=== PATIENT | female | born 1995 | race Caucasian/White ===

== ENCOUNTER 2016-09-09 13:18 | Emergency (ER) | payer OTHER ==
[~2016-09-09] VITALS: Ht 170.2 cm; Wt 79.5 kg
[2016-09-09 13:20] VITALS: BP 143/90; PULSE 91; RESP 18; O2SAT 96
[2016-09-09] MEDS ORDERED: PREN-12 PO (13:24)
--- NOTE | 2016-09-09 13:40 | ED.REPORT ---
HPI-Chest Pain Under 40 Date of Service Sep 09, 2016 ED Provider: Dr. Clark A 22 week 19 year old female presents to the ED complaining of an episode of baseline heart palpitations onset last night while patient was lying in bed. At onset, she felt elevated heart rate accompanied by pain throughout her chest and ribs that lasted 10 minutes. She has never felt pain like this in the past. Additionally, she reports having had an episode of palpitations accompanied by severe SOB earlier today while she was walking home from her neighbor's house, describing that it felt like there was a heavy pressure on her chest. Baseline palpitations originally onset approximately one month ago, and are normally accompanied by dizziness and syncope. Sometimes, the palpitations happen when she raises her arms up. Baseline palpitations have been relieved with sitting down and drinking a lot of water. She has never measured her heart rate to confirm elevated heart rate during baseline episodes of palpitations. She denies any cough, sputum, abdominal pain, or diarrhea. The patient reports having had either her tonsils or adenoids surgically removed and denies any history of anemia. She reports that her mom gets heart palpitations every once in a while but that they are not very strong. Her grandpa and uncle both had ingrid parkinson white syndrome but she has never been diagnosed with it. She reports having had a cold a couple of months ago but is otherwise healthy. She is currently taking pills, but has no other medications. She does not smoke or drink alcohol. The patient reports that they are not currently experiencing the heart palpitation symptoms at the moment. Nursing Notes Stated Complaint: HEART PALPITATIONS, DIZZY/FAINT, SOB, 21 WKS PREG Chief Complaint: Chest Pain Nursing Notes Reviewed: Yes Allergies: Coded Allergies: No Known Allergies (Unverified , 09/09/16) Miscellaneous Medications Vit W-Ca,Fe,FA(<1 mg) ( Formula) 1 Each Tablet 1 EACH PO General Time Seen by MD: 13:39 Chief Complaint Chest pain (Heart palpitations) Hx Obtained From: Patient Arrived By: Walk-in Onset Occurred: Yesterday (Last night) Symptom Duration: Intermittent Severity: Current: Mild Severity: Maximum: Mild Recent Healthcare: No recent doctor visit Similar Sx Previous: No Past Medical History Past Medical History Denies anemia. Past Surgical History reports having had either her tonsils or adenoids surgically removed Family History Patient's mom gets heart palpitations every once in a while but that they are not very strong. Patient's grandpa and uncle both had ingrid parkinson white syndrome but she has never been diagnosed with it. Ambulatory Status Independent Review of Systems Respiratory: Reports: Shortness of breath, Denies: Non-productive cough, Prod cough, clear Cardiovascular: Reports: Chest pain GI: Denies: Abdominal pain, Diarrhea Neurologic: Reports: Dizziness, Syncope Complete sys rev & neg: except as marked. Female: Reports: Physical Exam Initial Vital Signs Vital Signs (First) Date Time Temp Pulse Resp B/P Pulse Ox O2 Delivery O2 Flow Rate FiO2 09/09/16 13:20 36.6 91 18 143/90 96 Room Air Initial VS: Reviewed General/Constitutional: Awake, Alert Respiratory / Chest: Atraumatic, Breath sounds NL, Breath sounds = bilat, No respiratory distress, No rales, No rhonchi, No wheezing Cardiovascular: Heart rate NL, Regular rhythm, Heart sounds NL, No gallop, No murmurs, No rubs Right lower extremity edema, mild. Neck: Atraumatic, Full range of motion Abdomen: Atraumatic, No guarding, No rebound Back: Atraumatic, Full range of motion Skin: Atraumatic, Warm, Dry Neurologic: Oriented X3, Speech NL Head / Eyes: Atraumatic, Normocephalic, PERRL, EOMI ENT: Atraumatic, Mucous membranes moist Upper Extremity / MS: Atraumatic, Full range of motion Wrist / Hand: Atraumatic, Full range of motion Ankle / Foot: Atraumatic, Full range of motion Interpretation & Diagnostics Lab Results Interpretation Result Diagram: 09/09/16 1350 09/09/16 1350 Test 09/09/16 13:30 09/09/16 13:50 White Blood Count 11.9th/mm3 (3.8-10.1) Red Blood Count 4.24mil/mm3 (3.90-5.20) Hemoglobin 12.7g/dL (12.0-15.6) Hematocrit 36.4% (35.0-46.0) Mean Corpuscular Volume 85.8fL (81-100) Mean Corpuscular Hemoglobin 30.0pg (27.0-35.0) Mean Corpuscular Hemoglobin Concent 34.9% (32.0-37.0) Red Cell Distribution Width 13.9% (12.3-15.4) Platelet Count 305bil/L (150-400) Neutrophils (%) (Auto) 76.0% (40-74) Lymphocytes (%) (Auto) 17.9% (14-46) Monocytes (%) (Auto) 4.8% (4-12) Eosinophils (%) (Auto) 0.9% (0-5) Basophils (%) (Auto) 0.1% (0-3) D-Dimer 0.9mg/L (<0.50) Sodium Level 132mEq/L (134-144) Potassium Level 3.7mEq/L (3.5-5.2) Chloride Level 96mEq/L (97-108) Carbon Dioxide Level 20mmol/L (18-29) Blood Urea Nitrogen 8mg/dL (6-20) Creatinine 0.37mg/dL (0.57-1.00) Estimat Glomerular Filtration Rate 322mL/min (>59) Glucose Level 89mg/dL (60-99) Calcium Level 9.7mg/dL (8.5-10.1) Magnesium Level 1.9mg/dL (1.6-2.6) Total Bilirubin 0.2mg/dL (0.0-1.2) Aspartate Amino Transf (AST/SGOT) 16U/L (0-50) Alanine Aminotransferase (ALT/SGPT) 20U/L (0-32) Alkaline Phosphatase 129U/L (25-150) Troponin T < 0.010ug/L (0.0-0.011) Total Protein 7.6g/dL (6.4-8.4) Albumin 4.2g/dL (3.4-5.0) ECG Interpretation ECG Interpretation: Rate is 85. Sinus rhythm. Time: 13:51 Interpreted by: ED physician Re-Eval/Medical Decision Med Decision/Clinical Course Patient has a persistent tachycardia and an elevated d-dimer with exertional tachycardia and chest pain concerning for embolism. She does have a short AL interval on EKG without a delta wave, this could be a sign of occult [id number]-Kpbdhdhbf-Fjaxm or other preexcitation syndrome. Currently thyroid studies and CT angiogram of the chest are pending. A phone call to the patient's [employer] is also pending. Source of Hx: Old records Re-Evaluation/Progress #1: Time of Eval: 13:57 Re-Evaluation/Progress Note: Rechecked patient, explained risks invloved with radiation and development. Exaplained that her baby is beyond organogenesis stage of development. Re-Evaluation/Progress #2: Time of Eval: 15:01 Re-Evaluation/Progress Note: Rechecked patient. She reported that she got up and walked to the bathroom with no complaints. She reports feeling normal. Discharge & Departure Shift Change Sign-Out Patient Care Transferred: Yes Discussed Complaint(s): Yes Laboratory Evaluation: Back, reviewed by me Care Transferred to: Dr. Dial. Care Transferred at: 15:00 Scribe Attestation Portions of this note were transcribed by Duarte Azul. Dr. Angelica Chiu personally performed the history, physical exam and medical decision-making; I reviewed and confirmed the accuracy of the information in the transcribed note. Signed by: Mary Dai, 09/09/2016 1518. Phil Clark DO Sep 09, 2016 13:40 Duarte Azul Sep 09, 2016 13:47 Discharge & Departure Scribe Attestation Portions of this note were transcribed by Duarte Azul. Dr. Angelica Chiu personally performed the history, physical exam and medical decision-making; I reviewed and confirmed the accuracy of the information in the transcribed note. Signed by: Mary Dai, 09/09/2016 1447. Phil Clark DO Sep 09, 2016 13:40 Duarte Azul Sep 09, 2016 13:47
[2016-09-09 14:16] LABS: BASOPHILS % (AUTO) 0.1 % (0-3); EOSINOPHILS % (AUTO) 0.9 % (0-5); MONOCYTES % (AUTO) 4.8 % (4-12); Mean Corpuscular Volume 85.8 fL (81-100); Platelet Count 305 bil/L (150-400)
[2016-09-09 14:45] LABS: TROPONIN T < 0.010 ug/L (0.0-0.011)
[2016-09-09 14:50] LABS: Magnesium 1.9 mg/dL (1.6-2.6)
[2016-09-09 14:58] VITALS: BP 123/68; PULSE 103; RESP 17; O2SAT 97
--- NOTE | 2016-09-09 15:07 | DRSVH ---
PROCEDURE: X-RAY CHEST ONE VIEW, PORTABLE ([id number]) INDICATIONS: chest pain, palpitations TECHNIQUE: One view of the chest was acquired. COMPARISON: None. FINDINGS: Surgical changes and devices: None. Lungs and pleura: No pleural effusions or pneumothorax. Lungs are clear. Mediastinum: Mediastinal contours appear normal. Heart size is normal. Bones and chest wall: No suspicious bony lesions. Overlying soft tissues appear unremarkable. IMPRESSION: No acute cardiopulmonary disease. Dictated by: Collins Mcbride [facility] Interpreted: Flavia Tejada MD on 09/09/2016 at 15:06 Transcribed by: HUGH on 09/09/2016 at 15:06 Approved by: Flavia Tejada MD, PhD on 09/10/2016 at 11:01
--- NOTE | 2016-09-09 15:27 | NUR ---
FHT 150 by doppler
--- NOTE | 2016-09-09 16:04 | DRSVH ---
PROCEDURE: CT ANGIO CHEST PULMONARY EMBOLISM ([id number]) INDICATIONS: chest pain/ tachycardia/ elevated ddimer TECHNIQUE: After the administration of intravenous contrast, 2 mm thick sections acquired from the pulmonary api casandra to the posterior costophrenic angles. 3-dimensional maximum intensity projection (MIP) coronal a nd sagittal reformats were then acquired through the thorax. For radiation dose reduction, the follo wing was used: automated exposure control, adjustment of mA and/or kV according to patient size. COMPARISON: None. FINDINGS: Image quality: Excellent. Pulmonary arteries: Pulmonary arteries are normal in size, and demonstrate no intraluminal filling d efects to suggest central pulmonary embolism. Lungs and pleura: Lungs are clear. No pleural effusions or pneumothorax. Central and peripheral ai rways are patent. Mediastinum: Heart size is normal, without pericardial effusion. No mediastinal or hilar adenopathy . Thoracic aorta is normal in caliber and enhancement. Esophagus is normal in caliber, without hiat al hernia. Bones and chest wall: No suspicious bony lesions. Ribs and thoracic spine appear intact throughout. Thyroid gland is normal in visualized. No axillary or supraclavicular adenopathy. Abdomen: Visualized upper abdominal solid organs appear normal in the early arterial phase of enhanc ement. IMPRESSION: 1. No pulmonary embolus. 2. No acute lung opacities. Dictated by: Flavia Tejada MD, PhD on 09/09/2016 at 15:58 Approved by: Flavia Tejada MD, PhD on 09/09/2016 at 16:03
[2016-09-09 16:45] VITALS: BP 115/65; PULSE 102; RESP 16; O2SAT 100
[2016-09-09 17:04] VITALS: BP 115/65; PULSE 102; RESP 16; O2SAT 100
== END 2016-09-09 17:02 | disposition home or self-care (01) ==
LOC: SED 13:18
DX: O99.89 Other specified diseases and conditions complicating pregnancy, childbirth and the puerperium (principal); R00.2 Palpitations; R07.89 Other chest pain; R79.1 Abnormal coagulation profile; Z3A.21 21 weeks gestation of pregnancy
CPT/HCPCS: 36415; 71010; 71275; 80053; 83735; 84439; 84443; 84484; 85025; 85379; 93005; 99285; Q9967